=== PATIENT | female | born 1975 | race African-American/Black ===

== ENCOUNTER 2018-01-22 23:02 | Emergency (ER) | payer OTHER ==
[~2018-01-22] VITALS: Ht 170.2 cm; Wt 105.1 kg
[~2018-01-22 23:02] MED LIST: ACET1TAB33 PO; IBUP800T19 PO
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
[2018-01-22] MEDS ORDERED: PRED50TA PO (23:29)
[2018-01-22] MEDS ORDERED: HYDROcodon/IBUPROFEN 7.5/200MG 1 TAB TABLET PO ONE (23:30)
[2018-01-22] MEDS ORDERED: ALBUTEROL SULFATE 8GM INHALER. INH ONE (23:45)
[2018-01-22] MEDS ORDERED: predniSONE 10 MG TABLET PO ONE (23:45)
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
[2018-01-23 00:25] VITALS: BP 138/64
== END 2018-01-23 00:30 | disposition home or self-care (01) ==
LOC: ER 23:02
DX: S40.012A Contusion of left shoulder, initial encounter (principal); S60.222A Contusion of left hand, initial encounter; R07.89 Other chest pain; J40 Bronchitis, not specified as acute or chronic; E11.9 Type 2 diabetes mellitus without complications; I10 Essential (primary) hypertension; W22.8XXA Striking against or struck by other objects, initial encounter; Y93.89 Activity, other specified; Y99.8 Other external cause status; Y92.89 Other specified places as the place of occurrence of the external cause
CPT/HCPCS: 71046; 73030; 73060; 94640; 99284; J7512; J7613